=== PATIENT | female | born 1985 | race Caucasian/White ===

== ENCOUNTER 2023-12-28 23:32 | Emergency (ER) | payer OTHER ==
[2023-12-29] MEDS ORDERED: Sodium Chloride 0.9% 1,000 ML ONE (00:26)
[2023-12-29 00:32] LABS: #Basophils 0.1 thou/uL (0.0-0.2); #Lymphocytes 1.2 thou/uL (1.20-3.40); #Monocytes 0.6 thou/uL (0.11-0.59); %Basophils 0.9 % (0.0-1.0); %Eosinophils 0.3 % (0.0-10.0); %Neutrophils 72.8 % (42.0-75.0); Hematocrit 48.1 % (36.0-47.0); Mean Corpuscular HGB CONC 33.3 g/dL (32.0-36.0); Mean Corpuscular Hemoglobin 29.3 pg (27.0-31.0); Mean Corpuscular Volume 87.9 fl (78.0-98.0); Mean Platelet Volume 9.1 fL (7.4-10.4); Platelet Count 224 10x3/uL (130-400); RBC Distribution Width 12.1 % (11.5-14.5); Red Blood Cell (RBC) Count 5.47 mill/uL (4.20-5.40); White Blood Cell (WBC) Count 6.9 10x3/uL (4.8-10.8)
[2023-12-29 00:40] LABS: Pregs Control Bar Appear? YES (CONTROL BAR)
[2023-12-29 00:43] LABS: BHCG - Serum Negative (NEGATIVE)
[2023-12-29 00:46] LABS: Troponin I Less than 0.010 ng/mL (< 0.028)
[2023-12-29 00:53] LABS: Alcohol Less than 10.0 mg/dL (Less than 10); Salicylate Less than 8.0 mg/dL (15.0-30.0)
[2023-12-29 00:56] LABS: ALT (SGPT) 32 U/L (8-55); AST (SGOT) 51 U/L (5-34); Albumin 4.7 g/dL (3.5-5.0); Alkaline Phosphatase 84 U/L (40-110); Anion Gap 18 mmol/L (10-20); BUN (Urea Nitrogen) 7 mg/dL (7.0-18.7); Bilirubin, Total 0.9 mg/dL (0.2-1.2); Calc. Creatinine Clearance 0 mL/min (70-130); Calcium 9.9 mg/dL (7.8-10.44); Carbon Dioxide 18 mmol/L (22-29); Chloride 107 mmol/L (98-107); Estimated GFR 80; Globulin 3.2 g/dL (2.4-3.5); Glucose 95 mg/dL (70-105); Potassium 5.4 mmol/L (3.5-5.1); Protein, Total 7.9 g/dL (6.0-8.3); Sodium 138 mmol/L (136-145)
[2023-12-29 01:07] LABS: Acetaminophen Less than 10 mcg/mL (10.0-30.0)
== END 2023-12-29 01:58 | disposition home or self-care (01) ==
LOC: NAV ERS 23:32
DX: E86.0 Dehydration (principal); F15.10 Other stimulant abuse, uncomplicated; I10 Essential (primary) hypertension; J45.909 Unspecified asthma, uncomplicated; Z79.899 Other long term (current) drug therapy
CPT/HCPCS: 80053; 80307; 84443; 84484; 84703; 85025; 93005; J7050

== ENCOUNTER 2024-03-22 12:03 | Emergency (ER) | payer OTHER ==
[2024-03-22] MEDS ORDERED: Clindamycin 150 MG CAP ONE (12:34)
[2024-03-22] MEDS ORDERED: Acetaminophen 500 MG TAB ONE (12:34)
[2024-03-22] MEDS ORDERED: Naproxen 500 MG TAB ONE (12:34)
[2024-03-22] MEDS ORDERED: Boostrix 0.5 ML (Tdap) VIAL (>/=7 yrs of age) ONE (12:34)
[2024-03-22] MEDS ORDERED: Bacitracin 1 PK ONE (13:14)
== END 2024-03-22 13:40 | disposition home or self-care (01) ==
LOC: NAV ERS 12:03
DX: S91.332A Puncture wound without foreign body, left foot, initial encounter (principal); S91.351A Open bite, right foot, initial encounter; L03.116 Cellulitis of left lower limb; I10 Essential (primary) hypertension; J45.909 Unspecified asthma, uncomplicated; F17.290 Nicotine dependence, other tobacco product, uncomplicated; Z79.899 Other long term (current) drug therapy; Z23 Encounter for immunization; W54.0XXA Bitten by dog, initial encounter
CPT/HCPCS: 90471; 90715

== ENCOUNTER 2024-03-24 22:01 | Emergency (ER) | payer OTHER ==
[2024-03-24] MEDS ORDERED: Clindamycin 150 MG CAP ONE (22:26)
[2024-03-24] MEDS ORDERED: methylPREDNISolone Acetate 40 mg/ml Vial ONE (22:26)
[2024-03-24] MEDS ORDERED: Ipratropium/Albuterol 3 ML NEB ONE (22:26)
[2024-03-24] MEDS ORDERED: Albuterol 200 PUFF (6.7GM INHALER) ONE (22:51)
[2024-03-24] MEDS ORDERED: Naproxen 500 MG TAB ONE (22:51)
== END 2024-03-24 23:13 | disposition home or self-care (01) ==
LOC: NAV ERS 22:01
DX: J45.901 Unspecified asthma with (acute) exacerbation (principal); F17.290 Nicotine dependence, other tobacco product, uncomplicated
CPT/HCPCS: 94640; 96372; J1030; J7620

== ENCOUNTER 2024-11-30 18:39 | Emergency (ER) | payer OTHER ==
[2024-11-30] MEDS ORDERED: Ibuprofen 800 MG TAB ONE (18:51)
[2024-11-30] MEDS ORDERED: Lorazepam 2 MG/ML VIAL ONE (18:55)
[2024-11-30] MEDS ORDERED: Lidocaine 1% (PF) 30 ML VIAL ONE (19:38)
== END 2024-11-30 20:46 | disposition home or self-care (01) ==
LOC: NAV ERS 18:39
DX: S92.411A Displaced fracture of proximal phalanx of right great toe, initial encounter for closed fracture (principal); I10 Essential (primary) hypertension; F17.290 Nicotine dependence, other tobacco product, uncomplicated; W23.0XXA Caught, crushed, jammed, or pinched between moving objects, initial encounter; Y92.019 Unspecified place in single-family (private) house as the place of occurrence of the external cause
CPT/HCPCS: 28495; 96372; J2060